=== PATIENT | female | born 1990 | race Caucasian/White ===

== ENCOUNTER 2016-07-18 10:31 | Emergency (ER) | payer BC ==
[~2016-07-18] VITALS: Ht 160 cm; Wt 52.2 kg
[~2016-07-18 10:31] MED LIST: KLONOPIN0.5 MG PO; VALTREX1000 MG PO; VENLAFAXINE HCL75 MG PO
== END 2016-07-18 11:28 | disposition short-term general hospital (02) ==
LOC: ER 10:31
DX: S61.551A Open bite of right wrist, initial encounter (principal); S01.351A Open bite of right ear, initial encounter; S41.151A Open bite of right upper arm, initial encounter; F41.9 Anxiety disorder, unspecified; F32.9 Major depressive disorder, single episode, unspecified; W54.0XXA Bitten by dog, initial encounter